=== PATIENT | male | born 1945 | race Caucasian/White ===

== ENCOUNTER → 2019-05-21 | Outpatient (CLI) | payer MEDICARE ==
[~2019-05-21] MED LIST: REGADENOSON 0.4 MG/5 ML SYRINGE ONE
== END | disposition home or self-care (01) ==
LOC: CFH 10:46
PROVIDERS: ATTEND Physician Assistant Medical
DX: Z01.810 Encounter for preprocedural cardiovascular examination (principal); R07.89 Other chest pain
CPT/HCPCS: 78452; 93017; A9502; J2785

== ENCOUNTER 2019-06-01 08:32 | Outpatient (CLI) | payer MEDICARE ==
[2019-06-01 13:26] LABS: ANION GAP 4 mmol/L (5-15); CALCIUM 9.5 mg/dL (8.5-10.1); CHLORIDE 106 mmol/L (98-107); CREATININE 1.04 mg/dL (0.7-1.3)
== END 2019-06-01 23:59 | disposition home or self-care (01) ==
LOC: CFH 08:32
PROVIDERS: ATTEND Physician Assistant Medical
DX: Z01.810 Encounter for preprocedural cardiovascular examination (principal); R07.89 Other chest pain; R42 Dizziness and giddiness; I10 Essential (primary) hypertension
CPT/HCPCS: 36415; 80048

== ENCOUNTER 2019-06-04 11:10 | Day surgery (SDC) | payer MEDICARE ==
[~2019-06-04] VITALS: Ht 193 cm; Wt 121.4 kg
[2019-06-04] MEDS ORDERED: SODIUM CHLORIDE 0.9% 1,000 ML IV SCH ×2 (11:47→13:47)
[2019-06-04 12:01] VITALS: BP 181/107
[2019-06-04] MEDS ORDERED: LATA7.5D OP (12:10)
[2019-06-04] MEDS ORDERED: LISI2.5T PO (12:10)
[2019-06-04] MEDS ORDERED: PRED5DRO20 OP (12:10)
[2019-06-04] MEDS ORDERED: DONE10TA56 PO (12:10)
[2019-06-04] MEDS ORDERED: TIMO5DRO28 OP (12:10)
[2019-06-04] MEDS ORDERED: ALLO300T PO (12:10)
[2019-06-04] MEDS ORDERED: ASPI81TA45 PO (12:10)
[2019-06-04 12:25] LABS: BASOPHILS # (AUTO) 0.02 x10^3/uL (0-0.1); BASOPHILS % (AUTO) 0 % (0-1); EOSINOPHILS # (AUTO) 0.11 x10^3/uL (0-0.4); EOSINOPHILS % (AUTO) 2 % (1-7); LYMPHOCYTES # (AUTO) 1.83 x10^3/uL (1-3.4); LYMPHOCYTES % (AUTO) 33 % (22-44); MD NO; MEAN CORPUSCULAR HEMOGLOBIN 31.8 pg (27.5-34.5); MEAN CORPUSCULAR VOLUME 93.6 fL (81-97); MEAN PLATELET VOLUME 7.4 fL (7.4-10.4); MONOCYTES # (AUTO) 0.39 x10^3/uL (0.2-0.8); MONOCYTES % (AUTO) 7 % (2-9); NEUTROPHILS # (AUTO) 3.29 x10^3/uL (1.8-6.8); NEUTROPHILS % (AUTO) 58 % (42-75); PLATELET COUNT 247 x10^3/uL (130-400); RED BLOOD COUNT 4.69 x10^6/uL (4.38-5.82)
[2019-06-04] MEDS ORDERED: TICAGRELOR 90 MG TABLET ONE (12:54)
[2019-06-04] MEDS ORDERED: LIDOCAINE-MPF 1%, 5ML ONE ×2 (12:54)
[2019-06-04] MEDS ORDERED: FENTANYL PF 100 MCG/2ML ONE (12:54)
[2019-06-04] MEDS ORDERED: BIVALIRUDIN 250 MG ONE (12:54)
[2019-06-04] MEDS ORDERED: MIDAZOLAM 1 MG/ML, 2ML ONE ×2 (12:54)
[2019-06-04] MEDS ORDERED: hydrALAzine 20 MG/ML, 1ML ONE (13:44)
== END 2019-06-04 16:37 | disposition home or self-care (01) ==
LOC: CACL 11:10
PROVIDERS: ATTEND Internal Medicine Cardiovascular Disease
DX: R94.39 Abnormal result of other cardiovascular function study (principal); R07.89 Other chest pain; I10 Essential (primary) hypertension; Z79.82 Long term (current) use of aspirin; Z79.899 Other long term (current) drug therapy; Z88.1 Allergy status to other antibiotic agents; Z88.8 Allergy status to other drugs, medicaments and biological substances
CPT/HCPCS: 36415; 85025; 93458; 99156; C1769; C1894; J0360; J2250; J3010; Q9967; J0583

== ENCOUNTER 2019-10-30 08:06 | Outpatient (CLI) | payer MEDICARE ==
[~2019-10-30 08:06] MED LIST changes: +ALLO300T PO; +ASPI81TA45 PO; +DONE10TA56 PO; +LATA7.5D OP; +LISI2.5T PO; +PRED5DRO20 OP; -REGADENOSON 0.4 MG/5 ML SYRINGE ONE; +TIMO5DRO28 OP
[2019-10-30] MEDS ORDERED: TERA5CAP3 PO (08:46)
[2019-10-30] MEDS ORDERED: ASPI81TA45 PO (08:53)
[2019-10-30 09:21] LABS: MICROSCOPIC NOT IND
[2019-10-30 09:22] LABS: BASOPHILS # (AUTO) 0.02 x10^3/uL (0-0.1); BASOPHILS % (AUTO) 0 % (0-1); EOSINOPHILS # (AUTO) 0.14 x10^3/uL (0-0.4); EOSINOPHILS % (AUTO) 2 % (1-7); LYMPHOCYTES # (AUTO) 1.63 x10^3/uL (1-3.4); LYMPHOCYTES % (AUTO) 27 % (22-44); MD NO; MEAN CORPUSCULAR HEMOGLOBIN 30.8 pg (27.5-34.5); MEAN CORPUSCULAR HGB CONC 32.5 g/dL (33.2-36.2); MEAN PLATELET VOLUME 7.1 fL (7.4-10.4); MONOCYTES # (AUTO) 0.36 x10^3/uL (0.2-0.8); MONOCYTES % (AUTO) 6 % (2-9); NEUTROPHILS # (AUTO) 3.97 x10^3/uL (1.8-6.8); NEUTROPHILS % (AUTO) 65 % (42-75); PLATELET COUNT 252 x10^3/uL (130-400); RED BLOOD COUNT 4.58 x10^6/uL (4.38-5.82); RED CELL DISTRIBUTION WIDTH 14.8 % (9.4-14.8)
[2019-10-30 09:30] LABS: INTERNATIONAL NORMALIZED RATIO 0.99 (0.93-1.1); PROTHROMBIN TIME 10.5 Seconds (9.6-11.5)
[2019-10-30 09:35] LABS: ALANINE AMINOTRANSFERASE 26 U/L (12-78); ANION GAP 3 mmol/L (5-15); CALCIUM 9.9 mg/dL (8.5-10.1); CHLORIDE 107 mmol/L (98-107)
[2019-10-30 09:37] LABS: ALKALINE PHOSPHATASE 75 U/L (45-117); BILIRUBIN,TOTAL 0.7 mg/dL (0.2-1.0); CREATININE 0.96 mg/dL (0.7-1.3); TOTAL PROTEIN 7.3 g/dL (6.4-8.2)
[2019-11-17] MEDS ORDERED: HYDR-3246 PO (08:55)
[2019-11-17] MEDS ORDERED: TIZA2CAP2 PO (08:56)
[2019-11-17] MEDS ORDERED: POLY17PO5 PO (08:59)
== END 2019-10-30 23:59 | disposition home or self-care (01) ==
LOC: STAR 08:06
PROVIDERS: ATTEND Neurological Surgery
DX: Z01.818 Encounter for other preprocedural examination (principal); S33.140A Subluxation of L4/L5 lumbar vertebra, initial encounter; M48.061 Spinal stenosis, lumbar region without neurogenic claudication; M47.814 Spondylosis without myelopathy or radiculopathy, thoracic region; E65 Localized adiposity; M25.78 Osteophyte, vertebrae; M48.07 Spinal stenosis, lumbosacral region; X58.XXXA Exposure to other specified factors, initial encounter; Y93.89 Activity, other specified; Y92.89 Other specified places as the place of occurrence of the external cause; Y99.8 Other external cause status
CPT/HCPCS: 36415; 71046; 72110; 80053; 81003; 85025; 85610; 85730; 93005